=== PATIENT | female | born 1990 | race Caucasian/White ===

== ENCOUNTER 2025-02-07 12:16 | Emergency (ER) | payer MEDICAID ==
[~2025-02-07] VITALS: Ht 167.6 cm; Wt 113.0 kg
[2025-02-07 12:17] VITALS: BP 135/72; PULSE 90; RESP 16; TEMP 36.9; O2SAT 99
== END 2025-02-07 14:45 | disposition left against medical advice (07) ==
LOC: ER 12:54
DX: R05.9 Cough, unspecified (principal); R09.81 Nasal congestion; Z53.21 Procedure and treatment not carried out due to patient leaving prior to being seen by health care provider